=== PATIENT | male | born 1960 | race Caucasian/White ===

== ENCOUNTER 2017-06-29 16:00 | Emergency (ER) | payer OTHER, SELFPAY ==
[2017-06-29] MEDS ORDERED: Cephalexin 500 MG CAP ONE (16:23)
[2017-06-29] MEDS ORDERED: Adacel (T-DAP) 0.5 ML VIAL ONE (16:23)
[2017-06-29] MEDS ORDERED: Lidocaine 2% w/Epinephrine 1:200K 20 ML VIAL ONE (16:23)
[2017-06-29] MEDS ORDERED: Bacitracin Zinc 1 Packet ONE (16:52)
== END 2017-06-29 17:18 | disposition home or self-care (01) ==
LOC: MADERS 16:00
DX: S41.111A Laceration without foreign body of right upper arm, initial encounter (principal); Z79.82 Long term (current) use of aspirin; W27.8XXA Contact with other nonpowered hand tool, initial encounter
CPT/HCPCS: 12002; 90471; 90715